=== PATIENT | female | born 1965 | race Caucasian/White ===

== ENCOUNTER 2022-07-23 10:02 | Outpatient (CLI) | payer OTHER, SELFPAY ==
--- NOTE | 2022-07-23 10:21 | MM_ITS ---
WS: [id number] DIAGNOSTIC BILATERAL DIGITAL BREAST TOMOSYNTHESIS MAMMOGRAPHY WITH CAD RIGHT breast ultrasound, limited HISTORY: Z13.9 - Encounter for screening, unspecified COMPARISON: 01/08/2011, 11/19/2007 TECHNIQUE: Bilateral craniocaudad, mediolateral oblique, and mediolateral views are submitted with to mostysonesis and SM. Spot compression LEFT CC and MLO. Computer aided detection utilized. Breast composition: The breasts are heterogeneously dense, which may obscure small masses. There are multiple bilateral breast masses. Some of these masses contain calcifications. Very similar distribut ion as on the prior examination from 2010. There is a slightly lobulated nodule at 9:00 RIGHT breast which is probably present on the prior study and partially obscured. Ultrasound will be performed in this area to evaluate for any new mass. RIGHT breast ultrasound, limited. Multiple solid breast masses are identified. Some of these contain calcifications. After reviewing pr ior ultrasounds these masses have been present on prior studies. There is no new mass. MM/[place] [id number] IMPRESSION: BI-RADS: 2-Benign FOLLOW UP: 1 Year Follow-up
== END 2022-07-23 10:03 | disposition home or self-care (01) ==
PROVIDERS: PCP Family Medicine; Visit Provider Family Medicine
DX: N63.0 Unspecified lump in unspecified breast (principal)
CPT/HCPCS: 76642; 77062

== ENCOUNTER 2022-11-21 08:02 | Day surgery (SDC) | payer OTHER, SELFPAY ==
[2022-11-19 09:45] VITALS: BMI 41.3
[2022-11-21 08:24] VITALS: BP 146/91; PULSE 73; RESP 18; TEMP 36.9; O2SAT 95
[2022-11-21] MEDS: sodium chloride 0.9% 1,000 ML 30 ML IV (08:34)
--- NOTE | 2022-11-21 08:58 | ANES.PREANE2 ---
Pre-Anesthetic Assessment Height/Weight: Height 1.75 m Weight 127.006 kg Temp Pulse Resp BP Pulse Ox O2 Del Method 98.4 F 73 18 146/91 95 11/21/22 08:24 11/21/22 08:24 11/21/22 08:24 11/21/22 08:24 11/21/22 08:24 11/21/22 08:24 Operation Date: 11/21/22 09:30 Proposed Procedures p Colonoscopy 30820,Z12.11(Not Applicable) - Wlalace Osei DO Familial anesthetic complications: None Was Beta Tonja taken within 24 hours: N/A Was Clonidine taken within 24 hours: N/A Last intake: Intake Last Liquid Date 11/20/22 Last Liquid Time 22:00 Last Solid Date 11/19/22 Last Solid Time 22:00 Social No alcohol and No tobacco Exam alert, oriented x 3, clear to auscultation bilaterally and regular rate & rhythm Airway Mallampati: Class III Dentition: full Metabolic Morbid Obesity Anesthetic Plan ASA status: 2 Anesthesia: MAC Risk of > 500 ml blood loss (7ml/kg in children): No Medications/Allergies Home Medications Medication Instructions Recorded Confirmed Last Taken Type albuterol sulfate 90 mcg/actuation 1 inh inhalation QID PRN shortness 06/23/22 11/21/22 6 Months Ago Rx aerosol inhaler of breath or wheezing #8.5 grams ~05/21/22 calcium carb 333 mg-vit D3 133 2 tab PO DAILY 11/19/22 11/19/22 11/19/22 History unit-mag ox 133 mg-zinc oxide 5 mg tab (Gennaro Mag Zinc Plus D3) tizanidine 4 mg tablet 4 mg PO Q6H PRN Muscle Spasm 11/19/22 11/19/22 11/20/22 History Allergies Allergy/AdvReac Type Severity Reaction Status Date / Time ampicillin Allergy Unknown Unknown Verified 06/23/22 13:34 cefdinir Allergy Unknown Unknown Verified 06/23/22 13:34 erythromycin base Allergy Unknown unk Verified 06/23/22 13:34 levofloxacin [From Levaquin] Allergy Unknown Unknown Verified 06/23/22 13:34 Penicillins Allergy Unknown Unknown Verified 06/23/22 13:34 Current Medications Generic Name Dose Route Start Last Admin Trade Name Freq PRN Reason Stop Dose Admin Sodium Chloride 1,000 mls @ 30 mls/hr 11/21/22 08:15 11/21/22 08:34 Sodium Chloride 0.9% IV 11/22/22 08:14 30 mls/hr .Q24H NGOZI Administration PFSH Anesthesia Family History Father CAD (coronary artery disease) Social History Smoking and tobacco status: former smoker Quit status (tobacco): has quit using tobacco Alcohol intake: current Alcohol intake frequency: holidays/special occasions only Data Anesthesia Cardiac Studies: No Data to Display
--- NOTE | 2022-11-21 09:18 | P.HP_ITS ---
Providers/Chief Complaint Primary Care Provider: Chad Puri DO Chief Complaint: Encounter for screening for malignant neoplasm History of Present Illness Candace Patel is a 57 year old female here for her first screening colonosc opy. She denies any abdominal pain, nausea, emesis, diarrhea, constipation, hematochezia and/or melena. Her grandfather did pass away of colon cancer Review of Systems General: Reports: 10 or more systems reviewed and unremarkable except in HPI and below Medications/Allergies Home Medications Medication Instructions Recorded Confirmed Last Taken Type albuterol sulfate 90 mcg/actuation 1 inh inhalation QID PRN shortness 06/23/22 11/21/22 6 Months Ago Rx aerosol inhaler of breath or wheezing #8.5 grams ~05/21/22 calcium carb 333 mg-vit D3 133 2 tab PO DAILY 11/19/22 11/19/22 11/19/22 History unit-mag ox 133 mg-zinc oxide 5 mg tab (Gennaro Mag Zinc Plus D3) tizanidine 4 mg tablet 4 mg PO Q6H PRN Muscle Spasm 11/19/22 11/19/22 11/20/22 History Allergies Allergy/AdvReac Type Severity Reaction Status Date / Time ampicillin Allergy Unknown Unknown Verified 06/23/22 13:34 cefdinir Allergy Unknown Unknown Verified 06/23/22 13:34 erythromycin base Allergy Unknown unk Verified 06/23/22 13:34 levofloxacin [From Levaquin] Allergy Unknown Unknown Verified 06/23/22 13:34 Penicillins Allergy Unknown Unknown Verified 06/23/22 13:34 PFSH Acute PFSH: Family History Father CAD (coronary artery disease) Social History Smoking and tobacco status: former smoker Quit status (tobacco): has quit using tobacco Alcohol intake: current Alcohol intake frequency: holidays/special occasions only Vitals/I&O/Wt Last Vital Signs Temp 98.4 F 11/21/22 08:24 Pulse 73 11/21/22 08:24 Resp 18 11/21/22 08:24 BP 146/91 11/21/22 08:24 Pulse Ox 95 11/21/22 08:24 O2 Del Method 11/21/22 08:24 Weight last 48 hrs Weight 280 lb Physical Exam Narrative: Abdomen: Soft, nontender, nondistended, no guarding rebound or masses A&P Assessment and plan (1) Colon cancer screening: Plan Colonoscopy The risks and benefits of the procedure, including bleeding, infection, intestinal perforation requiring surgery, missed lesion were explained to the patient. The patient is understanding of the risks and wishes to proceed. Attestations Medical Necessity Statement*: Home Coding Level of Care Code Acute Code for Chg Fwd Diagnoses Colon cancer screening Z12.11
[2022-11-21 09:37] VITALS: BP 118/73; PULSE 70; RESP 18; TEMP 36.2; O2SAT 95
[2022-11-21 09:46] VITALS: BP 119/77; PULSE 68; RESP 18; O2SAT 97
[2022-11-21 09:52] VITALS: BP 139/65; PULSE 78; RESP 18; O2SAT 95
--- NOTE | 2022-11-21 13:59 | ANE.PACU2 ---
Inpatient post-anesthesia follow up: Airway intact: Yes Vital signs: Temperature 97.2 F Pulse Rate 78 Respiratory Rate 18 Blood Pressure 139/65 Pulse Oximetry 95 Oxygen Delivery Me thod Room Air Oxygen Flow Rate 3 Fraction of Inspir ed Oxygen Hydration adequate: Yes Nausea and vomiting: No Pain level: 1 Mental status: Baseline
== END 2022-11-21 10:12 | disposition home or self-care (01) ==
PROVIDERS: PCP Family Medicine; Visit Provider Surgery
PROC: 0DJD8ZZ Inspection of Lower Intestinal Tract, Via Natural or Artificial Opening Endoscopic (ICD-10-PCS; CPT 45378; principal; 2022-11-21 09:30)
DX: Z12.11 Encounter for screening for malignant neoplasm of colon (principal); Z80.0 Family history of malignant neoplasm of digestive organs; Z87.891 Personal history of nicotine dependence; E66.01 Morbid (severe) obesity due to excess calories; Z68.41 Body mass index [BMI] 40.0-44.9, adult
CPT/HCPCS: 45378; J2704; J7030